=== PATIENT | male | born 1985 | race Two or more races ===

== ENCOUNTER 2024-04-14 11:51 | Emergency (ER) | payer SELFPAY | END 2024-04-14 13:42 | disposition home or self-care (01) | LOC: MW.ED 11:51 | DX: K04.7 Periapical abscess without sinus (principal); Z75.8 Other problems related to medical facilities and other health care | CPT/HCPCS: 99282 ==

== ENCOUNTER 2025-01-19 13:07 | Emergency (ER) | payer BC | END 2025-01-19 15:32 | disposition home or self-care (01) | LOC: MW.ED 13:07 | DX: J06.9 Acute upper respiratory infection, unspecified (principal) | CPT/HCPCS: 87428-QW; 87651; 99283; 99284 ==